=== PATIENT | female | born 2000 | race Hispanic/Latino ===

== ENCOUNTER 2022-07-04 10:51 | Emergency (ER) | payer OTHER ==
[~2022-07-04] VITALS: Ht 165.1 cm; Wt 45.4 kg
[2022-07-04 11:06] VITALS: BP 106/80
[2022-07-04] MEDS ORDERED: IBUPROFEN 800 MG TAB PO ONE (12:00)
[2022-07-04] MEDS ORDERED: IBUP-1493 PO (13:04)
== END 2022-07-04 13:15 | disposition home or self-care (01) ==
LOC: EDH 10:51
DX: S60.212A Contusion of left wrist, initial encounter (principal); Z79.1 Long term (current) use of non-steroidal anti-inflammatories (NSAID); V49.59XA Passenger injured in collision with other motor vehicles in traffic accident, initial encounter; Y93.89 Activity, other specified; Y92.89 Other specified places as the place of occurrence of the external cause; Y99.8 Other external cause status
CPT/HCPCS: 70450; 72125; 73110

== ENCOUNTER 2023-12-02 00:19 | Emergency (ER) | payer OTHER ==
[~2023-12-02] VITALS: Ht 167.6 cm; Wt 49.0 kg
[~2023-12-02 00:19] MED LIST: IBUP-1493 PO
[2023-12-02 00:59] LABS: BASOPHILS # (AUTO) 0.06 K/uL (0.00-0.20); BASOPHILS % (AUTO) 0.3 % (0.0-5.0); EOSINOPHILS # (AUTO) 0.02 K/uL (0.00-0.70); EOSINOPHILS % (AUTO) 0.1 % (0.0-8.0); HEMATOCRIT 42.9 % (36-48); IMMATURE GRANULOCYTE ABSOLUTE 0.07 K/uL (0-1); LYMPHOCYTES # (AUTO) 1.9 K/uL (1.0-4.8); LYMPHOCYTES % (AUTO) 10.6 % (21.0-51.0); MEAN CORPUSCULAR HEMOGLOBIN 28.5 pg (27.0-33.0); MEAN CORPUSCULAR HGB CONC 33.1 g/dL (32.0-36.0); MONOCYTES % (AUTO) 5.5 % (3.0-13.0); NEUTROPHILS # (AUTO) 14.8 K/uL (1.8-7.7); NEUTROPHILS % (AUTO) 83.1 % (40.0-77.0); PLATELET COUNT (AUTO) 232 K/uL (130-400); RED BLOOD CELL COUNT(AUTO) 4.99 MIL/uL (4.00-5.50); RED CELL DISTRIBUTION WIDTH 13.4 % (11.0-15.5); WHITE BLOOD COUNT (AUTO) 17.8 K/uL (4.8-10.8)
[2023-12-02 01:04] LABS: CREATININE 0.6 mg/dL (0.5-1.0); POTASSIUM 3.7 mmol/L (3.5-5.1)
[2023-12-02 01:09] LABS: ALBUMIN 4.3 g/dL (3.5-5.0); BILIRUBIN,TOTAL 0.6 mg/dL (0.2-1.0); TOTAL PROTEIN, SERUM 7.7 g/dL (6.0-8.3)
[2023-12-02 01:20] LABS: APPEARANCE,URINE CLOUDY (CLEAR); BILIRUBIN,URINE NEGATIVE (NEGATIVE); COLOR,URINE LIGHT-YELLOW (YELLOW); GLUCOSE, URINE (UA) NEGATIVE (NEGATIVE); KETONES,URINE 20 mg/dL (NEGATIVE); LEUKOCYTE ESTERASE ,URINE 25 Leu/uL (NEGATIVE); NITRATE,URINE NEGATIVE (NEGATIVE); OCCULT BLOOD,URINE NEGATIVE (NEGATIVE); PH,URINE 7.5 (5.0-8.0); PROTEIN,URINE 10 mg/dL (NEGATIVE); UROBILINOGEN,URINE 0.2 mg/dL (0.2-1.0)
[2023-12-02 01:25] LABS: ADD UA MICROSCOPIC YES
[2023-12-02 01:29] LABS: MUCUS,URINE MOD LPF (None Seen); SQUAMOUS EPITHELIAL CELL,UR FEW /HPF (0-2)
[2023-12-02] MEDS: KETOROLAC 60 MG VIAL (30MG/ML) IM ONE (03:00)
[2023-12-02 04:38] VITALS: BP 125/88; PULSE 70; RESP 16; O2SAT 100
== END 2023-12-02 05:22 | disposition home or self-care (01) ==
LOC: EDH 00:19
DX: N94.0 Mittelschmerz (principal)
CPT/HCPCS: 99285; 76856; 80053; 85025; 81001; 81025; 36415; 96372; J1885

== ENCOUNTER 2025-06-17 18:52 | Emergency (ER) | payer SELFPAY ==
[~2025-06-17] VITALS: Ht 162.6 cm; Wt 46.3 kg
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
--- NOTE | 2025-06-17 21:29 | HMCIMG ---
EXAM: CR Chest, 1 view CLINICAL HISTORY: Chest pain. COMPARISON: None provided. FINDINGS: The lungs show no infiltrates or other acute findings. No pleural effusion or pneumothorax. The cardiomediastinal silhouette is within normal limits. No acute osseous abnormality. IMPRESSION: No acute cardiopulmonary process is evident. /Rodney
--- NOTE | 2025-06-17 21:31 | HMCIMG ---
EXAM: CR Left Shoulder, 2 views. CLINICAL HISTORY: Pain. COMPARISON: None provided. FINDINGS: No acute fracture or aggressive appearing osseous lesion. Unremarkable joint spaces. The soft tissues are unremarkable. IMPRESSION: No acute bony abnormality is evident. /Fluker
[2025-06-17 21:41] VITALS: BP 132/77; PULSE 78; RESP 18; TEMP 98.2; O2SAT 100
== END 2025-06-17 21:41 | disposition home or self-care (01) ==
LOC: EDH 18:52
DX: M25.512 Pain in left shoulder (principal); Z79.1 Long term (current) use of non-steroidal anti-inflammatories (NSAID)
CPT/HCPCS: 99284; 71045; 73030; 96372; J1885